=== PATIENT | female | born 1955 | race Caucasian/White ===

== ENCOUNTER 2023-01-27 09:03 | Emergency (ER) | payer MEDICARE, OTHER ==
[2023-01-27 10:13] LABS: Hemoglobin 13.2 g/dL (12.0-16.0); Mean Corpuscular HGB CONC 34.8 g/dL (32.0-36.0); Mean Corpuscular Hemoglobin 35.4 pg (27.0-31.0); Mean Corpuscular Volume 101.7 fl (78.0-98.0); Mean Platelet Volume 10.3 fL (7.4-10.4); Platelet Count 172 10x3/uL (130-400); RBC Distribution Width 12.2 % (11.5-14.5); Red Blood Cell (RBC) Count 3.72 mill/uL (4.20-5.40); White Blood Cell (WBC) Count 17.9 10x3/uL (4.8-10.8)
[2023-01-27] MEDS ORDERED: Sodium Chloride 0.9% 250 ML 250 ML ONE (10:17)
[2023-01-27] MEDS ORDERED: cefTRIAXone (ROCEPHIN) 2 GM VIAL ONE (10:17)
[2023-01-27] MEDS ORDERED: Sodium Chloride 0.9% 100 ML ONE (10:17)
[2023-01-27] MEDS ORDERED: Azithromycin 500 MG VIAL ONE (10:17)
[2023-01-27 10:24] LABS: ALT (SGPT) 25 U/L (8-55); AST (SGOT) 43 U/L (5-34); Albumin 3.2 g/dL (3.4-4.8); Alkaline Phosphatase 160 U/L (40-110); Anion Gap 18 mmol/L (10-20); BUN (Urea Nitrogen) 15 mg/dL (9.8-20.1); Bilirubin, Total 0.5 mg/dL (0.2-1.2); Calc. Creatinine Clearance 0 mL/min (70-130); Calcium 9.4 mg/dL (7.8-10.44); Carbon Dioxide 17 mmol/L (23-31); Chloride 104 mmol/L (98-107); Estimated GFR 97; Globulin 2.9 g/dL (2.4-3.5); Glucose 111 mg/dL (80-115); Lipase 24 U/L (8-78); Magnesium 1.6 mg/dL (1.6-2.6); Potassium 3.3 mmol/L (3.5-5.1); Protein, Total 6.1 g/dL (5.8-8.1); Sodium 136 mmol/L (136-145)
[2023-01-27 10:25] LABS: Band 11 % (5-11); Lymphocytes 3 % (21-51); MDiff Complete? YES; Manual Diff?? YES; Monocytes 1 % (0-10); Neutrophil 85 % (42-75)
[2023-01-27 10:26] LABS: Anisocytosis SLIGHT = 6-15 cells (100X) (0-5/hpf); Macrocytosis SLIGHT = 6-15 cells (100X) (0-5/hpf)
[2023-01-27 10:27] LABS: Platelet Morphology Comment Appears Adequate
[2023-01-27] MEDS ORDERED: Ketorolac Tromethamine 30 MG/ML VIAL ONE (10:56)
[2023-01-27] MEDS ORDERED: Ondansetron PF 4 MG/2 ML Vial ONE (11:04)
[2023-01-27 11:21] LABS: SARS-CoV-2 NAA Rapid Test Not Detected (NotDetected)
[2023-01-27] MEDS ORDERED: Sodium Chloride 0.9% 500 ML ONE (12:56)
== END 2023-01-27 13:44 | disposition short-term general hospital (02) ==
LOC: MADERS 09:03
DX: J18.9 Pneumonia, unspecified organism (principal); R09.1 Pleurisy; F17.210 Nicotine dependence, cigarettes, uncomplicated; Z20.822 Contact with and (suspected) exposure to COVID-19
CPT/HCPCS: 0240U; 71045; 80053; 83605; 83690; 83735; 84484; 85025; 87040; 87077; 87149 ×2; 87186; 93005; 94760; 96361; 96365; 96366; 96367; 96375; 99285; J0456; J0696; J1885; J2405; J3490; J7030; J7050